=== PATIENT | male | born 1960 | race American Indian/Alaskan Native ===

== ENCOUNTER 2021-08-14 10:46 | Inpatient (IN) | payer MEDICARE ==
[2021-08-14] MEDS ORDERED: ONDANSETRON 4 MG/2 ML INJ IV ONE (12:39)
[2021-08-14] MEDS ORDERED: MORPHINE 4 MG/1 ML INJ IV ONE (12:39)
--- NOTE | 2021-08-14 12:45 | Emergency Department Report ---
ED Extremity Problem HPI - General Chief complaint: Extremity Problem,Nontraumatic Stated complaint: L ARM EDEMA Time Seen by Provider: 08/14/21 11:47 Source: patient, EMS Mode of arrival: Stretcher Limitations: No Limitations - History of Present Illness Initial comments: 61-year-old male with a history of end-stage renal disease currently taking hemodialysis who now presents with problem with his left fistula for his dialysis. He said he had been having problem with this since he started dialysis intermittently. He was recently sent to vascular surgeon at [facility] for further evaluation and treatment per the nephrology was told that they were not able to fix the problem. Patient was then scheduled to see Dr. Cruz vascular surgeon at [facility] for further evaluation and treatment of this patient tomorrow since 2 weeks ago but says the pain was so much that he could not with till tomorrow. Patient denies any fever or chills. No trauma to the left upper arm reported. I called and spoke with patient's nephrology at dialysis center who confirmed the above issues. I was told that patient was actually having dialysis this morning when he started having excruciating pain and he has to stop 2 1/2 hours into his dialysis. I was also told by Dr. 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 No other modifying or positive factors reported. - Related Data Allergies Allergy/AdvReac Type Severity Reaction Status Date / Time No Known Allergies Allergy Verified 08/14/21 10:49 ED Review of Systems ROS: Stated complaint: L ARM EDEMA Other details as noted in HPI Comment: All other systems reviewed and negative Musculoskeletal: joint swelling, myalgia, other (Left upper arm fistula stenosis with swelling and edema and pain) ED Past Medical Hx - Social History Smoking Status: Never Smoker ED Physical Exam - General Limitations: No Limitations General appearance: alert, in distress (Due to pain in the left arm) - Head Head exam: Present: normal inspection - Eye Eye exam: Present: normal appearance Pupils: Present: normal accommodation - ENT ENT exam: Present: normal exam, normal orophraynx - Neck Neck exam: Present: normal inspection - Respiratory Respiratory exam: Present: normal lung sounds bilaterally. Absent: respiratory distress - Cardiovascular Cardiovascular Exam: Present: regular rate, normal rhythm, normal heart sounds - GI/Abdominal GI/Abdominal exam: Present: soft, normal bowel sounds. Absent: distended, tenderness - Expanded Upper Extremity Exam Left Shoulder Exam: Present: swelling Upper Arm exam: Present: tenderness, swelling Elbow exam: Present: tenderness, swelling Forearm Wrist exam: Present: tenderness, swelling Hand Wrist exam: Present: tenderness, swelling Vascular: Present: vascular compromise - Back Exam Back exam: Present: normal inspection - Neurological Exam Neurological exam: Present: alert, oriented X3 - Psychiatric Psychiatric exam: Present: normal affect, normal mood ED Course Vital Signs 08/14/21 08/14/21 08/14/21 10:47 11:05 11:07 Temperature 98 F Pulse Rate 77 Respiratory 0 L 0 L Rate Blood Pressure Blood Pressure 117/79 [Left] O2 Sat by Pulse 98 Oximetry 08/14/21 08/14/21 08/14/21 11:09 11:10 11:11 Temperature Pulse Rate 85 Respiratory 0 L 0 L 12 Rate Blood Pressure 153/82 153/82 Blood Pressure [Left] O2 Sat by Pulse 100 99 Oximetry 08/14/21 08/14/21 08/14/21 11:13 11:15 11:17 Temperature Pulse Rate 83 82 80 Respiratory 13 15 14 Rate Blood Pressure 153/82 153/82 153/82 Blood Pressure [Left] O2 Sat by Pulse 100 100 99 Oximetry 08/14/21 08/14/21 08/14/21 11:19 11:21 11:23 Temperature Pulse Rate 79 81 80 Respiratory 12 12 13 Rate Blood Pressure 153/82 153/82 157/78 Blood Pressure [Left] O2 Sat by Pulse 100 99 100 Oximetry 08/14/21 08/14/21 08/14/21 11:25 11:27 11:29 Temperature Pulse Rate 80 80 82 Respiratory 14 12 12 Rate Blood Pressure 157/78 157/78 157/78 Blood Pressure [Left] O2 Sat by Pulse 99 99 99 Oximetry 08/14/21 08/14/21 08/14/21 11:31 11:33 11:35 Temperature Pulse Rate 79 79 78 Respiratory 12 12 12 Rate Blood Pressure 157/78 157/78 157/78 Blood Pressure [Left] O2 Sat by Pulse 99 99 99 Oximetry 08/14/21 08/14/21 08/14/21 11:37 11:39 11:41 Temperature Pulse Rate 79 79 78 Respiratory 13 13 12 Rate Blood Pressure 157/78 157/78 157/78 Blood Pressure [Left] O2 Sat by Pulse 99 100 100 Oximetry 08/14/21 08/14/21 08/14/21 11:43 11:45 11:47 Temperature Pulse Rate 84 80 84 Respiratory 13 13 12 Rate Blood Pressure 157/78 157/78 157/78 Blood Pressure [Left] O2 Sat by Pulse 100 99 100 Oximetry 08/14/21 08/14/21 08/14/21 11:49 11:51 11:53 Temperature Pulse Rate 80 80 80 Respiratory 12 12 12 Rate Blood Pressure 157/78 157/78 157/77 Blood Pressure [Left] O2 Sat by Pulse 100 100 99 Oximetry 08/14/21 08/14/21 08/14/21 11:55 11:57 11:59 Temperature Pulse Rate 82 85 85 Respiratory 14 20 9 L Rate Blood Pressure 157/77 157/77 157/77 Blood Pressure [Left] O2 Sat by Pulse 100 100 100 Oximetry 08/14/21 08/14/21 08/14/21 12:01 12:03 12:05 Temperature Pulse Rate 81 82 79 Respiratory 11 L 11 L 12 Rate Blood Pressure 157/77 157/77 157/77 Blood Pressure [Left] O2 Sat by Pulse 100 100 99 Oximetry 08/14/21 08/14/21 08/14/21 12:07 12:09 12:11 Temperature Pulse Rate 79 81 79 Respiratory 12 13 19 Rate Blood Pressure 157/77 157/77 157/77 Blood Pressure [Left] O2 Sat by Pulse 99 100 100 Oximetry 08/14/21 08/14/21 08/14/21 12:13 12:15 12:17 Temperature Pulse Rate 79 80 76 Respiratory 18 18 13 Rate Blood Pressure 157/77 157/77 157/77 Blood Pressure [Left] O2 Sat by Pulse 99 97 100 Oximetry 08/14/21 08/14/21 08/14/21 12:19 12:21 12:23 Temperature Pulse Rate 75 74 76 Respiratory 13 13 14 Rate Blood Pressure 157/77 157/77 145/74 Blood Pressure [Left] O2 Sat by Pulse 99 99 100 Oximetry 08/14/21 08/14/21 08/14/21 12:25 12:27 12:29 Temperature Pulse Rate 75 75 75 Respiratory 13 13 10 L Rate Blood Pressure 145/74 145/74 145/74 Blood Pressure [Left] O2 Sat by Pulse 99 99 100 Oximetry 08/14/21 08/14/21 08/14/21 12:31 12:33 12:35 Temperature Pulse Rate 78 76 77 Respiratory 13 13 12 Rate Blood Pressure 145/74 145/74 145/74 Blood Pressure [Left] O2 Sat by Pulse 99 99 99 Oximetry 08/14/21 08/14/21 08/14/21 12:37 12:39 12:41 Temperature Pulse Rate 76 77 77 Respiratory 12 15 13 Rate Blood Pressure 145/74 145/74 145/74 Blood Pressure [Left] O2 Sat by Pulse 99 100 100 Oximetry 08/14/21 08/14/21 08/14/21 12:43 12:45 12:47 Temperature Pulse Rate 77 77 80 Respiratory 12 13 15 Rate Blood Pressure 145/74 145/74 145/74 Blood Pressure [Left] O2 Sat by Pulse 98 99 100 Oximetry 08/14/21 08/14/21 08/14/21 12:49 12:51 12:53 Temperature Pulse Rate 81 75 72 Respiratory 14 13 11 L Rate Blood Pressure 145/74 145/74 150/72 Blood Pressure [Left] O2 Sat by Pulse 100 100 98 Oximetry 08/14/21 08/14/21 08/14/21 12:55 12:57 12:59 Temperature Pulse Rate 70 70 69 Respiratory 11 L 12 12 Rate Blood Pressure 150/72 150/72 150/72 Blood Pressure [Left] O2 Sat by Pulse 98 98 98 Oximetry 08/14/21 08/14/21 08/14/21 13:01 13:03 13:05 Temperature Pulse Rate 69 70 69 Respiratory 10 L 11 L 10 L Rate Blood Pressure 150/72 150/72 150/72 Blood Pressure [Left] O2 Sat by Pulse 99 99 98 Oximetry 08/14/21 08/14/21 08/14/21 13:07 13:09 13:11 Temperature Pulse Rate 70 68 69 Respiratory 11 L 11 L 11 L Rate Blood Pressure 150/72 150/72 150/72 Blood Pressure [Left] O2 Sat by Pulse 99 100 99 Oximetry 08/14/21 08/14/21 08/14/21 13:13 13:14 14:01 Temperature Pulse Rate 70 72 Respiratory 13 13 Rate Blood Pressure 150/72 150/72 150/72 Blood Pressure [Left] O2 Sat by Pulse 100 100 99 Oximetry 08/14/21 08/14/21 08/14/21 14:03 14:05 14:07 Temperature Pulse Rate Respiratory 0 L 0 L 0 L Rate Blood Pressure 150/72 150/72 150/72 Blood Pressure [Left] O2 Sat by Pulse 100 99 100 Oximetry 08/14/21 08/14/21 08/14/21 14:09 14:11 14:13 Temperature Pulse Rate Respiratory 0 L 6 L 0 L Rate Blood Pressure 150/72 150/72 150/72 Blood Pressure [Left] O2 Sat by Pulse 99 100 100 Oximetry 08/14/21 08/14/21 08/14/21 14:15 14:17 14:19 Temperature Pulse Rate Respiratory 0 L 0 L 0 L Rate Blood Pressure 150/72 150/72 150/72 Blood Pressure [Left] O2 Sat by Pulse 100 99 100 Oximetry - Reevaluation(s) Reevaluation #1: 08/14/21 12:48 here with left upper swelling with tenderness with known fistula stenosis -- I call and spoke with Dr Dr. Peng who confirmed the fistula stenosis and that the patient has been scheduled to followup with Dr Cruz at [facility] since 2 weeks ago tomorrow--he suggested to have repeated vascular u/s and routine labs and admitted to hospitalize to have Dr Cruz consulted. Given morphine and Zofran 4 mg IV x1 for symptomatic relief. 08/14/21 12:53 Reevaluation #2: 08/14/21 13:17 I got a call back from Dr. Stein who was taking call for Dr. Cruz--he suggested getting the Fistula ultrasound and then call back as this patient might not need an admission because the procedure could be done at the clinic. We will wait for the results of the fitula Ultrasound. Reevaluation #3: 08/14/21 14:09 Got a call back from US with result that there is proximal complete stenosis of the AV fistula up onto the axillary-- Dr Cruz came to the ED and evaluate patient and plan to update me on what he plans to do. He says he might be able to do the procedure today. 08/14/21 14:26 Dr. Cruz decided to take the patient to the OR immediately. Dr. Jean consulted who accepted patient for further evaluation and treatment to the medical floor ED Medical Decision Making - Lab Data Result diagrams: 08/14/21 12:37 08/14/21 12:37 Critical care attestation.: If time is entered above; I have spent that time in minutes in the direct care of this critically ill patient, excluding procedure time. ED Disposition Clinical Impression: Left arm swelling AV fistula stenosis Qualifiers: Encounter type: initial encounter Qualified Code(s): T82.858A - Stenosis of other vascular prosthetic devices, implants and grafts, initial encounter Hemodialysis AV fistula stenosis Qualifiers: Encounter type: initial encounter Qualified Code(s): T82.858A - Stenosis of other vascular prosthetic devices, implants and grafts, initial encounter Disposition: 09 ADMITTED INPATIENT Is pt being admited?: Yes Does the pt Need Aspirin: No Condition: Stable Referrals: PRIMARY CARE, [Primary Care Provider] - 3-5 Days Time of Disposition: 14:27 (Dr Cruz took pt to OR Dr Jean updated)
[2021-08-14 13:21] LABS: Basophils % (Auto) 0.7 % (0.0-1.8); Eosinophils # (Auto) 0.3 K/mm3 (0.0-0.4); Eosinophils % (Auto) 7.3 % (0.0-4.3); Hematocrit 30.8 % (35.5-45.6); Hemoglobin 10.2 gm/dl (11.8-15.2); Lymphocytes # (Auto) 1.5 K/mm3 (1.2-5.4); Lymphocytes % (Auto) 33.8 % (13.4-35.0); Mean Corpuscular HGB Conc 33 % (32-34); Mean Corpuscular Volume 97 fl (84-94); Monocytes # (Auto) 0.4 K/mm3 (0.0-0.8); Monocytes % (Auto) 9.8 % (0.0-7.3); Platelet Count 195 K/mm3 (140-440); Red Blood Count 3.17 M/mm3 (3.65-5.03); Red Cell Distribution Width 15.2 % (13.2-15.2)
[2021-08-14 13:34] LABS: Albumin 3.9 g/dL (3.9-5); Calcium 9.5 mg/dL (8.4-10.2)
[2021-08-14 13:39] LABS: Partial Thromboplastin Time 30.8 Sec. (24.2-36.6)
--- NOTE | 2021-08-14 14:26 | History and Physical Report ---
History of Present Illness Chief complaint: My left arm is swollen and it hurts History of present illness: 61 YO Male with ESRD on HD, HTN, Anemia of Chronic Disease presents to ED for evaluation. Patient reports "my left arm has been swollen". Patient states that he has experienced left arm swelling over the past 2 weeks with persistent and worsening symptoms over the same timeframe. Patient states he has also experienced concomitant pain in his left arm. Patient states that pain is 5/10, constant, without exacerbating relieving factors. EMS was notified and upon arrival the patient was found to be in distress and subsequent transported to [facility] for further care and evaluation of the aforementioned symptoms. The patient was seen and evaluated in the emergency department. All lab and imaging studies reviewed. Patient underwent Doppler of the left arm and was found to have clotted AV fistula, as well as end-stage renal disease in need of dialysis. Vascular surgery team consulted in ED. Nephrology team consulted in ED. Patient taken urgently to [employer] for surgical invention. Patient denies f ever, chills, chest pain, palpitations, productive cough, skin rash, recent contact, known exposure to COVID-19. No prior admission for review. No medication listed at time of admission for reconciliation. Advanced care planning conducted in ED. Past History Past Medical History: anemia, ESRD, hypertension Past Surgical History: Other (Dialysis access) Social history: single. denies: smoking, alcohol abuse Family history: diabetes, hypertension Medications and Allergies Allergies Allergy/AdvReac Type Severity Reaction Status Date / Time No Known Allergies Allergy Verified 08/14/21 10:49 Review of Systems Constitutional: no weight loss, no weight gain, no sweats Ears, nose, mouth and throat: no ear pain, no tinnitis, no decreased hearing, no nose pain, no nasal congestion, no nasal discharge Cardiovascular: no chest pain, no palpitations Respiratory: no cough, no cough with sputum, no excessive sputum, no hemoptysis, no shortness of breath Gastrointestinal: no abdominal pain, no nausea, no vomiting, no diarrhea, no constipation, no change in bowel habits, no coffee ground emesis Genitourinary Male: no hematuria, no flank pain, no discharge, no urinary frequency Rectal: no pain, no incontinence, no bleeding Musculoskeletal: other (Left arm pain and swelling), no neck stiffness, no neck pain, no shooting arm pain, no low back pain Integumentary: no rash, no redness, no sores, no wounds Neurological: no head injury, no transient paralysis, no weakness, no parathesias, no tremors Psychiatric: no anxiety, no change in sleep habits, no sleep disturbances, no insomnia, no suicidal ideation Endocrine: no cold intolerance, no polyphagia, no polydipsia, no polyuria, no nocturia, no excessive sweating Hematologic/Lymphatic: no easy bruising, no easy bleeding Allergic/Immunologic: no urticaria, no allergic rhinitis, no wheezing Exam - Constitutional Vitals: Temp Pulse Resp BP Pulse Ox 98 F 72 0 L 150/72 100 08/14/21 10:47 08/14/21 13:14 08/14/21 14:19 08/14/21 14:19 08/14/21 14:19 General appearance: Present: mild distress - EENT Eyes: Present: PERRL ENT: hearing intact, clear oral mucosa - Neck Neck: Present: supple, normal ROM - Respiratory Respiratory effort: normal Respiratory: bilateral: CTA - Cardiovascular Heart Sounds: Present: S1 & S2. Absent: rub, click - Extremities Extremities: pulses symmetrical, No edema Extremity abnormal: edema, other (Left arm) Peripheral Pulses: within normal limits - Abdominal General gastrointestinal: Present: soft, non-tender, non-distended, normal bowel sounds Male genitourinary: Present: normal - Integumentary Integumentary: Present: clear, warm, dry - Musculoskeletal Musculoskeletal: gait normal, strength equal bilaterally - Psychiatric Psychiatric: appropriate mood/affect, intact judgment & insight - Neurologic Neurologic: CNII-XII intact, moves all extremities Results - Labs CBC & Chem 7: 08/14/21 12:37 08/14/21 12:37 Labs: Abnormal lab results 08/14/21 08/14/21 Range/Units 12:37 12:37 WBC 4.3 L (4.5-11.0) K/mm3 RBC 3.17 L (3.65-5.03) M/mm3 Hgb 10.2 L (11.8-15.2) gm/dl Hct 30.8 L (35.5-45.6) % MCV 97 H (84-94) fl [place] % (Auto) 9.8 H (0.0-7.3) % Eos % (Auto) 7.3 H (0.0-4.3) % Chloride 94.6 L (98-107) mmol/L Creatinine 6.6 H (0.8-1.3) mg/dL Total Protein 8.3 H (6.3-8.2) g/dL Assessment and Plan - Patient Problems (1) AV fistula stenosis Current Visit: Yes Status: Acute Qualifiers: Encounter type: initial encounter Qualified Code(s): T82.858A - Stenosis of other vascular prosthetic devices, implants and grafts, initial encounter Plan to address problem: Vascular surgery team consulted, left upper extremity Doppler, supportive care. Patient taken urgently to [employer] for surgical intervention. (2) End stage renal disease Current Visit: Yes Status: Acute Plan to address problem: Nephrology team consulted in ED, dialysis as per renal team. (3) Hypertension Current Visit: Yes Status: Acute Qualifiers: Hypertension type: primary hypertension Qualified Code(s): I10 - Essential (primary) hypertension Plan to address problem: Monitor blood pressure every shift, continue medical management (4) DVT prophylaxis Current Visit: Yes Status: Acute Plan to address problem: SCD to bilateral lower extremities while in bed (5) Advance care planning Current Visit: Yes Status: Acute Plan to address problem: Disease education conducted, care plan discussed, diagnoses discussed, prognosis discussed, patient is full code. Patient acknowledges understanding and agreement with care plan, +30 minutes.
[2021-08-14] MEDS ORDERED: HYDROmorphone 1 MG/1 ML INJ IV PRN (14:28)
[2021-08-14] MEDS ORDERED: ALBUTEROL 2.5 MG/3 ML NEBU IH PRN (14:28)
[2021-08-14] MEDS ORDERED: oxyCODONE /ACETAMINOPHEN 5-325MG TAB PO PRN (14:28)
[2021-08-14] MEDS ORDERED: ACETAMINOPHEN 325 MG TAB PO PRN (14:28)
[2021-08-14] MEDS ORDERED: ONDANSETRON 4 MG/2 ML INJ IV PRN (14:28)
[2021-08-14] MEDS ORDERED: LIDOCAINE (2%) 20 MG/1 ML VIAL 50 ML MDV INFILTRATI ONE (14:32)
[2021-08-14] MEDS ORDERED: MIDAZOLAM 2 MG/2 ML INJ ONE (14:32)
[2021-08-14] MEDS ORDERED: ceFAZolin/Water 2 GM/20 ML 2 GM/20 ML SYRINGE IV ONE (14:32)
[2021-08-14] MEDS ORDERED: HEPARIN/NS 5000 UNIT/500ML 1,000 ML IR ONE (14:33)
--- NOTE | 2021-08-14 14:33 | Consultation ---
History of Present Illness - Reason for Consult Consult date: 08/14/21 Complications of Dialysis Access Requesting physician: RICH BHAT - History of Present Illness The patient is a 61-year-old male with history of end-stage renal disease who is currently on hemodialysis through a right internal jugular permacath. He presents to the emergency department with complaints of left arm swelling that has been present for 2 weeks. He states he has had his fistula for approximately 7 years and has had left arm swelling on and off over this time period. He states that he usually goes to [facility] and has intervention performed by Dr. Aranza Dunham MD however during his last visit approximately [address] Dunham was unable to successfully cross his blockage and relieve his symptoms. 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 He was scheduled to see me in the office tomorrow however he presented to the emergency department because of worsening pain. At this time he has no additional complaints. Past History Past Medical History: ESRD, hypertension, other (Partial blindness of left eye) Past Surgical History: Other (Creation of left arm arteriovenous fistula, multiple permacath insertions) Social history: no significant social history Family history: no significant family history Medications and Allergies Allergies Allergy/AdvReac Type Severity Reaction Status Date / Time No Known Allergies Allergy Verified 08/14/21 10:49 Review of Systems All systems: negative Exam - Constitutional Vitals: Temp Pulse Resp BP Pulse Ox 98 F 72 0 L 150/72 100 08/14/21 10:47 08/14/21 13:14 08/14/21 14:19 08/14/21 14:19 08/14/21 14:19 General appearance: Present: no acute distress - Neck Neck: Present: other (Right internal jugular permacath is in place without overt signs of infection) - Respiratory Respiratory effort: normal - Cardiovascular Rhythm: regular - Extremities Extremities: abnormal (Left upper extremity with massive swelling throughout the arm and hand, fistula with pulsatility in the cannulation zone and a slight thrill near the venous outflow) - Abdominal General gastrointestinal: Present: soft Male genitourinary: Present: deferred - Rectal Rectal Exam: deferred Results - Labs CBC & Chem 7: 08/14/21 12:37 08/14/21 12:37 Labs: Abnormal lab results 08/14/21 08/14/21 Range/Units 12:37 12:37 WBC 4.3 L (4.5-11.0) K/mm3 RBC 3.17 L (3.65-5.03) M/mm3 Hgb 10.2 L (11.8-15.2) gm/dl Hct 30.8 L (35.5-45.6) % MCV 97 H (84-94) fl [place] % (Auto) 9.8 H (0.0-7.3) % Eos % (Auto) 7.3 H (0.0-4.3) % Chloride 94.6 L (98-107) mmol/L Creatinine 6.6 H (0.8-1.3) mg/dL Total Protein 8.3 H (6.3-8.2) g/dL - Imaging and Cardiology Venous US: other (Ultrasound of left upper extremity fistula was reviewed) Assessment and Plan The patient is a 61-year-old male with history of end-stage renal disease and a previous creation of a left arm arteriovenous fistula. He presents with severe swelling of the arm that has worsened over the past 2 weeks. Review of the ultrasound of the fistula reveals a severely dilated fistula within the arterial inflow and evidence of occluded stents extending from the axillary vein into the mid fistula. The patient is in need of a diagnostic fistulogram with possible intervention. This will likely require accessing the fistula as well as the groin to achieve. I discussed the findings and the plan with the patient was expressed understanding and agrees to proceed. The patient has been n.p.o. so I will take him to the [employer] today.
--- NOTE | 2021-08-14 14:36 | Vascular Lab Report ---
VL HEMODIALYSIS ACCESS HISTORY: Arteriovenous fistula stenosis TECHNIQUE: Grayscale ultrasound with color and spectral Doppler imaging FINDINGS: Left upper extremity AV fistula was evaluated from the proximal biceps to the distal outflow. Color a nd spectral Doppler imaging demonstrates occlusion of the distal AV fistula. Left brachial artery velocity measures 1 53 cm/s. Inflow measures 250 cm/s. Velocities in the mid and proximal biceps measures 66 and 32 cm/s respectively. No outflow is demonstrated on color spectral D oppler imaging. IMPRESSION: Occluded left upper extremity AV fistula. Dr. Arcos was informed of these findings at 13 52 hours by the perch machine inspector. Signer Name: Hiren Mohamud Jr, MD Signed: 08/14/2021 2:31 PM Workstation Name: [id number]
[2021-08-14] MEDS ORDERED: SODIUM CHLORIDE 0.9% 250ML 250 ML ONE (14:56)
[2021-08-14] MEDS: MIDAZOLAM 2 MG/2 ML INJ ONE ×4 (15:17→16:18)
[2021-08-14] MEDS: fentaNYL 100 MCG/2 ML INJ ONE ×5 (15:17→16:33)
[2021-08-14] MEDS: LIDOCAINE (1%) 10 MG/1 ML VIAL 20 ML MDV ONE ×4 (15:17→16:22)
[2021-08-14] MEDS: HEPARIN 10,000 UNITS/10 ML VIAL ONE ×2 (16:05→16:50)
[2021-08-14] MEDS ORDERED: HEPARIN/NS 5000 UNIT/500ML 500 ML IR ONE ×2 (16:23→16:41)
[2021-08-14] MEDS ORDERED: ALTEPLASE 2 MG INJ ONE (16:23)
[2021-08-14] MEDS ORDERED: WATER FOR INJ Sterile (PF) 10 ML ONE (16:24)
--- NOTE | 2021-08-14 17:16 | Operative Report ---
Operative Report Operative Report: Date of Procedure: 08/14/2021 Pre-operative Diagnosis: Complications of Dialysis Access Post-operative Diagnosis: Same Procedure(s): 1. Ultrasound Guided Access Left Arm Arteriovenous Fistula with 7 Central African Sheath Venous 2. Ultrasound Guided Access Left Arm Arteriovenous Fistula with Micropuncture Sheath Arterial 3. Diagnostic Fistulagram with Central Venogram 4. Pecutaneous Pharmacomechanical Thrombectomy of Left Arm AV Fistula with 6 mg of TPA and AngioJet Zelante Aspiration Catheter 5. Angioplasty and Stent of Left Innominate Vein with 10 x 40 Conquest Balloon and 12 x 80 Fluency Stent Graft 6. Angioplasty and Stent of Left Arm AV Fistula with 9 x 60 EverCross Balloon, 10 x 100 Covera Stent Graft, and 9 x 60 Covera Stent Graft 7. Radiologic Supervision with Interpretation 8. Monitored Moderate Sedation (Total Anesthesia Time: 94 Minutes) Surgeon: Sal Cruz M.D. Paper Cutter Operator: Nathan Anesthesia: Local/Monitored Moderate Sedation Total Anesthesia Time: 94 Minutes EBL: Minimal Counts: Correct Complications: None Condition: Stable Specimen: None Indication: The patient is a 61-year old male with a history of End-Stage renal disease who is currently on dialysis through a right internal jugular permacath. He has a left arm brachiocephalic arteriovenous fistula that was created approximately 7 years ago. He states that he has been experiencing severe swelling in the arm, on and off, for several years. He has had multiple interventions, requiring stents, to relieve his symptoms. He started having this episode of swelling approximately 2 weeks ago and his outside physician was unable to adequately treat him. He presented with severe left arm swelling and pain. He is in need of a diagnostic fistulagram with possible intervention. He was given the risk, benefits, and alternative procedures and wishes to proceed. Angiographic Findings: The diagnostic fistulogram revealed the arterial inflow of the fistula was patent without significant flow-limiting stenosis. The cannulation zone of the fistula was dilated to greater than 3 cm. There was an occlusion of the fistula just distal to the cannulation zone with multiple large collateral vessels that were filling the basilic vein. Stents were extending from this portion of the fistula to the cephalic arch however there was a gap between stents placed in the cephalic arch. The stents then extended into the subclavian vein and innominate vein and all stents were occluded. After intervention the venous outflow of the fistula was patent less than 20% residual stenosis within the most distal stent, 30% residual stenosis within the stents in the venous outflow that had not been relined and less than 25% residual stenosis within the central venous system. There was minimal residual thrombus and fairly brisk flow of contrast through the fistula into the central venous system. Description of Procedure: The patient was brought to the [facility] and laid in supine position. After a timeout was performed his left arm was prepped and draped in normal sterile fashion. Ultrasound was used to identify the fistula, near the arterial inflow, and lidocaine was used anesthetize the skin and soft tissue overlying the fistula. A 21-gauge micropuncture needle was used ultrasound guidance to access the fistula towards the venous outflow and a 0.018 micropuncture wire was advanced into the fistula. The needle was removed and a 7 Central African sheath was placed by Seldinger technique. The sheath was then exchanged for 7 Central African 11 cm sheath demonstrated the sheath was adequately anchored in the fistula. A diagnostic fistulogram with central venogram was performed with the previously described findings. At this point I systemically heparinized the patient with 5000 units of heparin IV. I made multiple attempts to traverse the occluded stent without success so I used ultrasound to identify the stent in the upper arm and use lidocaine to anesthetize the skin and soft tissue overlying the stent. I accessed the stent using ultrasound guidance towards the arterial inflow and then advanced a 0.018 micropuncture wire to the fistula. I removed the needle and placed a micropuncture sheath by Seldinger technique. I removed the dilator and wire and advanced the 0.035 glide advantage wire into the fistula. I then advanced a 18-30 mm EnSnare Snare into the fistula and was able to snare the advantage wire and pulled it back through the 7 Central African sheath. I advanced the vertebral catheter over the wire and into the occluded stent and then remove the advantage wire and advanced it through the vertebral catheter and into the central venous system. I then advanced into the inferior vena cava to anchor the wire and performed angioplasty of the occluded stents using a 9 x 60 EverCross balloon. The follow-up fistulogram revealed thrombus throughout the stents. I then laced the stents with 6 mg of TPA and allow this to dwell for approximately 10 to 15 minutes. I upsized my 7 Central African sheath to a 10 Central African 11 cm sheath and then used an 8 Central African Zelante AngioJet Aspiration Catheter to p erform percutaneous mechanical thrombectomy of the fistula. The follow-up fistulogram revealed a significant amount of stenosis within the stent graft however there was minimal residual thrombus. I placed a 12 x 80 Fluency Stent Graft across the stent within the innominate vein and extended this approximate 2 cm proximally. I then placed a 10 x 100 cm Covera stent graft across then occluded stent within the cephalic arch also bridging the gap between 2 previously placed stents. I postdilated this with a 10 x 40 Conquest Balloon which resulted in less than 25% residual stenosis. I placed a 9 x 80 Covera Stent Graft and the stent within the body of the fistula and extended this approximately 3 cm into the fistula. This was postdilated with a 9 x 60 EverCross Balloon which resulted in less than 20% residual stenosis within the stented portion of the access. The final fistulogram revealed patent stents within the venous outflow of the fistula with approximately 30% residual stenosis within the midportion of the stents that had not been relined however the remainder of the stenosis was as previously described. At this point the micropuncture sheath was removed and manual pressure was held to achieve hemostasis. A 2-0 Vicryl in pursestring fashion was then used to close the 10 Central African sheath entry site after removing the sheath. A pressure dressings were then applied to each entry site and the patient was transported to the floor in stable condition.
[2021-08-14] MEDS: APIXABAN 5 MG TAB PO SCH ×2 (17:23→21:30)
[2021-08-15 08:59] VITALS: BP 122/62
--- NOTE | 2021-08-15 09:04 | Consultation ---
History of Present Illness - Reason for Consult end stage renal disease Past History Past Medical History: anemia, ESRD, hypertension Past Surgical History: Other (Dialysis access) Social history: single. denies: smoking, alcohol abuse Family history: diabetes, hypertension Medications and Allergies Allergies Allergy/AdvReac Type Severity Reaction Status Date / Time No Known Allergies Allergy Verified 08/14/21 10:49 Active Meds: Active Medications Acetaminophen (Acetaminophen 325 Mg Tab) 650 mg PO Q4H PRN PRN Reason: Pain MILD(1-3)/Fever >100.5/TEMPLE Albuterol (Albuterol 2.5 Mg/3 Ml Nebu) 2.5 mg IH Q4HRT PRN PRN Reason: Shortness Of Breath Apixaban (Apixaban 5 Mg Tab) 5 mg PO Q12HR [facility]; Protocol Last Admin: 08/14/21 21:30 Dose: 5 mg Hydromorphone HCl (Hydromorphone 1 Mg/1 Ml Inj) 0.5 mg IV Q12H PRN PRN Reason: Pain , Severe (7-10) Ondansetron HCl (Ondansetron 4 Mg/2 Ml Inj) 4 mg IV Q8H PRN PRN Reason: Nausea And Vomiting Oxycodone/Acetaminophen (Oxycodone /Acetaminophen 5-325mg Tab) 1 tab PO Q6H PRN PRN Reason: Pain, Moderate (4-6) Sodium Chloride (Sodium Chloride 0.9% 10 Ml Flush Syringe) 10 ml IV BID [facility] Last Admin: 08/14/21 22:00 Dose: 10 ml Sodium Chloride (Sodium Chloride 0.9% 10 Ml Flush Syringe) 10 ml IV PRN PRN PRN Reason: LINE FLUSH Exam - Vital Signs Vital signs: Vital Signs Temp Pulse BP Pulse Ox 98 F 77 117/79 98 08/14/21 10:47 08/14/21 10:47 08/14/21 10:47 08/14/21 10:47 Results - Lab Results 08/14/21 12:37 08/14/21 12:37 Most recent lab results Calcium 9.5 mg/dL (8.4-10.2) 08/14/21 12:37
[2021-08-15 09:30] LABS: Hematocrit 27.4 % (35.5-45.6); Hemoglobin 8.9 gm/dl (11.8-15.2); Mean Corpuscular HGB Conc 32 % (32-34); Mean Corpuscular Volume 98 fl (84-94); Platelet Count 170 K/mm3 (140-440); Red Cell Distribution Width 14.9 % (13.2-15.2)
[2021-08-15 09:44] LABS: Calcium 8.1 mg/dL (8.4-10.2)
--- NOTE | 2021-08-15 11:32 | Discharge Summary ---
Providers - Providers Date of Admission: 08/14/21 14:28 Date of discharge: 08/15/21 Attending physician: CORDELL LEVIN 08/15/21 08:46 Consult to Physician [CONS] Routine Comment: Consulting Provider: CHERYL HARRISON Physician Instructions: Reason For Exam: ESRD Primary care physician: [facility] Hospitalization Reason for admission: AV fistula stenosis Condition: Stable Pertinent studies: fistula stenosis repair Hospital course: My left arm is swollen and it hurts History of present illness: 61 YO Male with ESRD on HD, HTN, Anemia of Chronic Disease presents to ED for evaluation. Patient reports "my left arm has been swollen". Patient states t hat he has experienced left arm swelling over the past 2 weeks with persistent and worsening symptoms over the same timeframe. Patient states he has also experienced concomitant pain in his left arm. Patient states that pain is 5/10, constant, without exacerbating relieving factors. EMS was notified and upon arrival the patient was found to be in distress and subsequent transported to [facility] for further care and evaluation of the aforementioned symptoms. The patient was seen and evaluated in the emergency department. All lab and imaging studies reviewed. Patient underwent Doppler of the left arm and was found to have clotted AV fistula, as well as end-stage renal disease in need of dialysis. Vascular surgery team consulted in ED. Nephrology team consulted in ED. Patient taken urgently to [facility] for surgical invention. Patient denies fever, chills, chest pain, palpitations, productive cough, skin rash, recent contact, known exposure to COVID-19. No prior admission for review. No medication listed at time of admission for reconciliation. Advanced care planning conducted in ED. 08/15 doing well. No complaints. Status post repair of AV fistula stenosis. Discussed with vascular surgeon and nephrology. Both have cleared the patient for discharge. He is medically stable for discharge Disposition: 30 STILL A PATIENT Final Discharge Diagnosis (Prints w/discharge instructions): AV fistula stenosis status postrepair. End-stage renal disease on hemodialysis. Hypertension. Normocytic anemia of chronic kidney disease Time spent for discharge: 34 min - Discharge Diagnoses (1) AV fistula stenosis Status: Acute Qualifiers: Encounter type: initial encounter Qualified Code(s): T82.858A - Stenosis of other vascular prosthetic devices, implants and grafts, initial encounter Comment: Status postrepair of AV fistula stenosis Details are not known as the procedure notes are pending Discussed with Dr. Cruz and he cleared the patient for discharge Continue Eliquis 5 mg twice daily at discharge (2) End stage renal disease Status: Chronic Comment: Patient had hemodialysis yesterday Discussed with Dr. Hassan and she cleared the patient for discharge and follow-up with his inflated pad buffer (3) Hypertension Status: Chronic Qualifiers: Hypertension type: primary hypertension Qualified Code(s): I10 - Essential (primary) hypertension (4) Anemia in chronic kidney disease Status: Chronic Comment: H&H stable No overt bleed Core Measure Documentation - Palliative Care Palliative Care/ Comfort Measures: Not Applicable - Core Measures Any of the following diagnoses?: none Exam - Constitutional Vitals: Temp Pulse Resp BP Pulse Ox 99.3 F 84 18 122/62 96 08/15/21 08:29 08/15/21 08:29 08/15/21 08:29 08/15/21 08:29 08/15/21 08:29 General appearance: Present: no acute distress, well-nourished - EENT Eyes: Present: PERRL (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), EOM intact ENT: hearing intact, clear oral mucosa - Neck Neck: Present: supple, normal ROM - Respiratory Respiratory effort: normal Respiratory: bilateral: CTA - Cardiovascular Rhythm: regular Heart Sounds: Present: S1 & S2 - Extremities Extremity abnormal: edema (Dressing over the left AV fistula) - Abdominal General gastrointestinal: Present: soft, non-tender Male genitourinary: Present: deferred - Rectal Rectal Exam: deferred - Integumentary Integumentary: Present: clear - Musculoskeletal Musculoskeletal: strength equal bilaterally - Neurologic Neurologic: no focal deficits, moves all extremities Plan Activity: advance as tolerated Weight Bearing Status: Full Weight Bearing Diet: regular, low fat, low cholesterol, low salt, renal, other (Fluid restriction to 1500 mL/day) Additional Instructions: Follow-up with his inflated pad buffer Dr. Guerin and hemodialysis clinic Follow up with: PRIMARY CARE, [Primary Care Provider] - 3-5 Days Prescriptions: Apixaban [Eliquis] 5 mg PO Q12HR #60 tablet oxyCODONE /ACETAMINOPHEN [Percocet 5/325 mg] 1 tab PO Q6H PRN #7 tablet PRN Reason: Pain, Moderate (4-6)
[2021-08-15] MEDS: APIXABAN 5 MG TAB PO SCH (11:34)
== END 2021-08-15 13:45 | disposition home or self-care (01) | DRG 252 ==
LOC: ED 10:46 → 4A 14:28
PROVIDERS: ADMIT Internal Medicine; ATTEND Internal Medicine
PROC: B51W1ZZ Fluoroscopy of Dialysis Shunt/Fistula using Low Osmolar Contrast (ICD-10-PCS; principal; 2021-08-14)
PROC: 05CF3ZZ Extirpation of Matter from Left Cephalic Vein, Percutaneous Approach (ICD-10-PCS; 2021-08-14)
PROC: 05743DZ Dilation of Left Innominate Vein with Intraluminal Device, Percutaneous Approach (ICD-10-PCS; 2021-08-14)
PROC: 057F3DZ Dilation of Left Cephalic Vein with Intraluminal Device, Percutaneous Approach (ICD-10-PCS; 2021-08-14)
PROC: 05763DZ Dilation of Left Subclavian Vein with Intraluminal Device, Percutaneous Approach (ICD-10-PCS; 2021-08-14)
PROC: 3E03317 Introduction of Other Thrombolytic into Peripheral Vein, Percutaneous Approach (ICD-10-PCS; 2021-08-14)
DX: T82.858A Stenosis of other vascular prosthetic devices, implants and grafts, initial encounter (principal); N18.6 End stage renal disease; I12.0 Hypertensive chronic kidney disease with stage 5 chronic kidney disease or end stage renal disease; Y83.2 Surgical operation with anastomosis, bypass or graft as the cause of abnormal reaction of the patient, or of later complication, without mention of misadventure at the time of the procedure; Y92.89 Other specified places as the place of occurrence of the external cause; Z99.2 Dependence on renal dialysis; Z83.3 Family history of diabetes mellitus; Z82.49 Family history of ischemic heart disease and other diseases of the circulatory system; D63.1 Anemia in chronic kidney disease
CPT/HCPCS: 36415; 36906; 37237; 80048; 80053; 85025; 85027; 85610; 85730; 93990; G0378; J3490; C1725; C1751; C1757; C1769; C1773; C1874; C1887; C1894; J0690; J1644; J2250; J2270; J2405; J2997; J3010; J7050; Q9967